=== PATIENT | female | born 1960 | race Caucasian/White ===

== ENCOUNTER → 2016-10-08 | Outpatient (REF) | payer OTHER | LOC: M LAB REF 10:05 | PROVIDERS: ATTEND Ophthalmology | DX: H02.834 Dermatochalasis of left upper eyelid (principal); H02.831 Dermatochalasis of right upper eyelid ==

== ENCOUNTER → 2017-04-10 | Outpatient (CLI) | payer OTHER ==
--- NOTE | 2017-04-10 11:41 | REP ---
Left lower extremity Duplex Doppler venous ultrasound: Real time compression and duplex Doppler interrogation of the left lower extremity deep venous system is performed. The left common femoral, superficial femoral and popliteal veins are fully compressible with transducer pressure and demonstrate normal spontaneous and phasic flow, without evidence of deep venous thrombosis. Impression: No evidence of deep venous thrombosis of the left lower extremity femoral popliteal venous system. Thrombus is seen in the greater saphenous vein, as expected status post laser ablation. Signed by Yogesh Marroquin MD 04/10/2017 11:33 A
== END ==
LOC: M RAD 10:39
PROVIDERS: ATTEND Surgery
DX: I82.409 Acute embolism and thrombosis of unspecified deep veins of unspecified lower extremity (principal); Z98.890 Other specified postprocedural states

== ENCOUNTER → 2018-08-25 | Outpatient (REF) | payer OTHER | LOC: M LAB LCGH 14:48 | PROVIDERS: ATTEND Physician Assistant | DX: B35.1 Tinea unguium (principal) ==

== ENCOUNTER → 2021-09-04 | Outpatient (REF) | payer OTHER | LOC: M SFHCDERM 18:36 | PROVIDERS: ATTEND Physician Assistant | DX: C44.311 Basal cell carcinoma of skin of nose (principal) ==

== ENCOUNTER → 2022-02-14 | Outpatient (REF) | payer OTHER | LOC: M SFHCDERM 17:17 | PROVIDERS: ATTEND Dermatology | DX: L30.9 Dermatitis, unspecified (principal) ==

== ENCOUNTER → 2022-07-08 | Outpatient (CLI) | payer OTHER | LOC: M SOG 08:08 | PROVIDERS: ATTEND Physician Assistant | DX: M25.532 Pain in left wrist (principal) ==

== ENCOUNTER 2022-08-29 08:00 | Day surgery (SDC) | payer OTHER ==
[~2022-08-29] VITALS: Ht 165.1 cm; Wt 54.4 kg
[~2022-08-29 08:00] MED LIST: ALEN70TA82 PO; APRE30TA3 PO; BUPR150T12 PO; CETI10CH PO; LIDOCAINE W/EPINEPHRINE 1% 20ML VIAL XX ONE; MELO15TA28 PO; SODIUM BICARBONATE 8.4% INJ 50MEQ 50ML VIAL XX ONE
[2022-08-29] MEDS ORDERED: BACITRACIN OINTMENT 30GM TUBE As Ordered ONE (10:16)
[2022-08-29 10:32] VITALS: BP 171/79
== END 2022-08-29 10:53 | disposition home or self-care (01) ==
LOC: M SDC 08:00
PROVIDERS: ATTEND Orthopaedic Surgery Hand Surgery
DX: M65.4 Radial styloid tenosynovitis [de Quervain] (principal)

== ENCOUNTER → 2024-09-01 | Outpatient (CLI) | payer OTHER ==
[~2024-09-01] MED LIST changes: -LIDOCAINE W/EPINEPHRINE 1% 20ML VIAL XX ONE; -SODIUM BICARBONATE 8.4% INJ 50MEQ 50ML VIAL XX ONE
== END ==
LOC: M CARPUL 16:18
PROVIDERS: ATTEND Registered Nurse
DX: I25.84 Coronary atherosclerosis due to calcified coronary lesion (principal)

== ENCOUNTER → 2024-12-08 | Outpatient (CLI) | payer OTHER | LOC: M PLAIMG 10:41 | PROVIDERS: ATTEND Registered Nurse | DX: I31.39 Other pericardial effusion (noninflammatory) (principal); I34.0 Nonrheumatic mitral (valve) insufficiency; I36.1 Nonrheumatic tricuspid (valve) insufficiency ==